=== PATIENT | female | born 1945 | race Caucasian/White ===

== ENCOUNTER → 2022-04-13 13:07 | Outpatient (CLI) | payer OTHER, SELFPAY ==
[2022-04-13 13:47] LABS: Add Manual Diff / Slide Review NO; Basophils Absolute Auto 100 /uL (0-100); Basophils Percent Auto 1.2 % (0-2); Eosinophils Absolute Auto 400 /uL (0-450); Eosinophils Percent Auto 4.6 % (2-4); Hematocrit 34.1 % (36-46); Lymphocytes Absolute Auto 2200 /uL (1100-4500); Lymphocytes Percent Auto 25.4 % (25-40); Mean Corpuscular HGB Conc 32.1 % (30-36); Mean Corpuscular Hemoglobin 24.4 PG (26-34); Monocytes Absolute Auto 600 /uL (0-900); Monocytes Percent Auto 7.6 % (3-14); Neutrophils Absolute Auto 5200 /uL (1500-7000); Neutrophils Percent Auto 61.2 % (50-75); Platelet Count 247 X10^3/uL (150-400); Red Blood Cell Count 4.49 X10^6/uL (4.0-5.2); Red Cell Distribution Width 17.8 % (11.6-14.8); White Blood Cell Count 8.6 X10^3/uL (4.5-11.0)
[2022-04-13 14:00] LABS: Hemoglobin A1C% w Est Avg Glu 5.6 % (4.0-6.0); PTT Partial Thromboplastin Tim 27 SECONDS (26-36)
[2022-04-13 14:14] LABS: BUN Creatinine Ratio 17.2 (6-22); Blood Urea Nitrogen 16 mg/dL (7-17); Calcium 9.1 mg/dL (8.4-10.2); Carbon Dioxide 27 mmol/L (22-32); Chloride 100 mmol/L (98-107); Estimated Glomerular Filt Rate > 60 mL/min (>60); Glucose 96 mg/dL (80-110); HEMOLYSIS < 15 (0-50); Sodium 138 mmol/L (137-145)
[2022-04-13 14:52] LABS: Appearance Urine UA CLEAR; Bilirubin Urine UA NEGATIVE (NEGATIVE); Color Urine UA YELLOW; Glucose Urine UA NEGATIVE (Negative); Ketones Urine UA NEGATIVE (NEGATIVE); Leukocyte Esterase Urine UA NEGATIVE (NEGATIVE); Nitrite Urine UA NEGATIVE (Negative); Occult Blood Urine UA NEGATIVE (Negative); Protein Urine UA NEGATIVE (Negative); Specific Gravity Urine UA <=1.005 (1.000-1.035); Urobilinogen Urine UA 0.2 E.U./dL (0.2)
[2022-04-13 15:09] LABS: Bacteria Urine None Seen; Culture Indicated Urine Cult Not Indicated; RBC Urine None Seen (0-5/HPF); WBC Urine None Seen (0-5/HPF)
== END ==
PROVIDERS: Family Provider Family Medicine; PCP Family Medicine; Referring Provider Orthopaedic Surgery; Visit Provider Orthopaedic Surgery
DX: Z01.818 Encounter for other preprocedural examination (principal); Z51.81 Encounter for therapeutic drug level monitoring; R73.9 Hyperglycemia, unspecified; Z01.812 Encounter for preprocedural laboratory examination; N39.0 Urinary tract infection, site not specified
CPT/HCPCS: 80048; 81001; 83036; 85025; 85610; 85730; 93005

== ENCOUNTER → 2022-05-13 11:24 | Outpatient (CLI) | payer OTHER, SELFPAY ==
[2022-05-13 13:58] LABS: COVID19 -Nasal RAPID Negative (Negative)
== END ==
PROVIDERS: Family Provider Family Medicine; PCP Family Medicine; Referring Provider Orthopaedic Surgery; Visit Provider Orthopaedic Surgery
DX: Z20.822 Contact with and (suspected) exposure to COVID-19 (principal)
CPT/HCPCS: 87635; C9803

== ENCOUNTER 2022-05-16 06:19 | Day surgery (SDC) | payer OTHER, SELFPAY ==
[2022-05-03 09:18] VITALS: BMI 28.3
[2022-05-16] VITALS (15 sets, daily range): BP systolic 118–192; BP diastolic 74–102; PULSE 65–97; RESP 12–21; TEMP 35.9–36.7; O2SAT 94–100; BMI 28.3
--- NOTE | 2022-05-16 06:00 | DI.RAD.S_ITS ---
PROCEDURE: XR HIP W PEL IF DONE RT 2V INDICATIONS: INNER OP TECHNIQUE: 2 view(s) of the hip acquired. COMPARISON: None. FINDINGS: 4 intraoperative fluoroscopic images of the right hip demonstrate operative changes of right total hip arthroplasty. Alignment appears anatomic. No evidence for gross hardware complication. IMPRESSION: Intraoperative fluoroscopic support for right total hip arthroplasty. Please see separate procedure note for further details. Dictated by: Felix Womack M.D. on 05/16/2022 at 16:04 Approved by: Felix Womack M.D. on 05/16/2022 at 16:05
[2022-05-16] MEDS: ACETAMINOPHEN 325 MG TABLET 975 MG PO (06:47)
[2022-05-16] MEDS: MELOXICAM 7.5 MG TABLET 15 MG PO (06:48)
[2022-05-16] MEDS: VANCOMYCIN 1,000 MG/200 ML PIGGYBACK 200 MG IV (06:53)
[2022-05-16] MEDS: LACTATED RINGERS 1,000 ML 42 ML IV ×2 (07:06→10:01)
[2022-05-16 07:36] LABS: COVID19 -Nasal RAPID Negative (Negative)
--- NOTE | 2022-05-16 07:40 | PM.PREOP ---
Pre-operative Note COVID-19 COVID-19 status: Negative Interval Note History & Physical reviewed/Exam performed by Physician: Yes Changes to H&P: No
--- NOTE | 2022-05-16 07:41 | P.OP_ITS ---
Operative Date/Time/Diagnoses Date of procedure: 05/16/22 Time of procedure: 08:00 Pre-op diagnosis: Severe right hip osteoarthritis Post-op diagnosis: same Procedure & Clinicians Procedure: Right total hip arthroplasty anterior approach Same procedure as scheduled: Yes Indications: The patient has had progressively worsening right hip pain with radiographic changes consistent with arthritis. Non-operative management has failed and the patient has requested total hip replacement. The risks, benefits and alternatives to surgery were discussed with the patient prior to proceeding. Risks discussed included, but were not limited to, failure to relieve pain, leg length discrepancy, dislocation, stiffness, infection, nerve damage, deep venous thrombosis, pulmonary embolism, stroke, coma, heart attack, permanent paralysis and , as well as the potential need for eventual revision of the prosthetic. Surgeon: Peggy Santos Head Of Design: Hector Wheeler Anesthesia Type: General and Spinal Operative Notes Findings: Severe right hip osteoarthritis, adequate stability, adequate bone Closure Type: primary Specimen(s): none sent Prosthetic devices, grafts, tissues, transplants, or devices: Santos and nephew anthology standard offset femur size 4, size 48 R3 cup, neutral poly liner, 32 x -3 Oxinium head,two 6.5 mm screws Estimated Blood Loss (mL): 250 Blood products transfused: none Procedure in detail: The patient was brought to the operating room. Patient was carefully positioned in the supine position. Time-out was performed and antibiotics were given. Anesthesia was induced. She was positioned in the on the table in order to allow hyperextension of the hip. The right lower extremity was prepped and draped in a standard sterile fashion. An anterior right hip incision was made 1 fingerb readth lateral to the anterior superior iliac spine and extended distally towards the greater trochanter. Dissection was carried out through skin and subcutaneous tissues. Superficial hemostasis was achieved. The fascia over the tensor fascia caroline was defined and incised with a knife. Two Allis clamps were used to grasp the fascia. Tensor fascia caroline was retracted laterally. A gelpi retractor was placed. Dissection was carried out down along the neck. The circumflex vessels were carefully identified and cauterized with the Aqua Mantis. There was good visualization of the femoral neck. A Cobra was placed superior to the neck and the gluteus fibers were carefully stripped from that superior aspect of the capsule. A 2nd retractor was placed along the inferior aspect of the neck. The rectus insertion along the capsule was partially released. A 3rd retractor that was then gently placed over the rim of the acetabulum under the rectus. Capsule was carefully incised and released from the intertrochanteric line circumferentially superior to the mid sagittal line and inferiorly to the mid sagittal line until the lesser trochanter was palpable. A tag stitch was placed both in the superior and inferior limb of the capsular insertion. Along the acetabulum capsule was also released up to the mid sagittal 12:00 position. A portion of the labrum was resected. A saw was used to perform an osteotomy at the level of the intertrochanteric line and the junction of the superior femoral neck leaving approximately 1 finger breath of residual inferior neck above the lesser trochanter. A 2nd cut was made along the femoral neck at the base of the head and a napkin ring of neck was removed. Corkscrew was placed in the femoral head and the head was removed without difficulty. Retractors were then repositioned around the acetabulum. Residual labrum was resected and additional osteophytes were removed. A reamer that was 4 mm below the templated size was placed by hand in the acetabulum and it was reamed to centralize the acetabulum. It was then reamed up to 2 under the templated size and fluoroscopy was brought in to confirm the position of the reaming and depth of reaming. I reamed 1 under the anticipated size. A trial cup was placed and noted that it was appropriately sized and fluoroscopy confirmed position and depth. The component was open and inserted without difficulty fluoroscopic imaging was used to confirm that the cup had been adequately seated and was well positioned. It was further stabilized with 2 screws. Neutral poly liner was placed. The cup was tested and noted to be stable. Attention was then directed to the femur. The femur was gently hyperextended additional capsular release was performed as needed in order to allow adequate visualization of the proximal femur with elevation of the femur. Patient was placed in a hyperextended slightly adducted position with maximum external rotation. Box osteotome was used to check for any residual neck as well as sclerotic bone along the trochanter. [place] pepper was placed in the femur. Additional broaching was performed. Canal finder was used to determine the alignment of the canal and position. Size 1 broach was placed. The canal was then appropriately broached up to the templated size as long as there was adequate stability of the broach and serial advancement of the broach without excessive impingement. Specific attention was directed at avoiding varus attempting to direct the distal aspect of the broach more anteriorly and avoiding excessive anteversion. Trial reduction showed acceptable range of motion, good stability, no posterior impingement, buddhism of leg length and appropriate lateral shuck. I also hyperflexed the hip and checked that there was no impingement anteriorly and there was good stability with flexion, adduction and internal rotation. Marcaine and Exparel were injected. The stem was placed without difficulty. Repeat trial reduction and x-ray showed acceptable overall position, length, and no evidence of the femoral fracture. Final head was placed. Wound was meticulously irrigated with normal saline. The hip was reduced and additional Exparel and Marcaine were injected. The capsule was closed with interrupted nonabsorbable sutures. The fascia of the tensor was closed with interrupted and running Vicryl. No drain was placed. Any tensor fascia caroline muscle that appeared to be contused or injured which was a minimal amount was carefully resected. Capsule around the tensor was injected with Exparel and Marcaine. The skin was closed with barbed stitches for the subcutaneous tissue and skin. We also used surgical glue. The wound was dressed sterilely. Brief Betadine soak was also used and was meticulously irrigated with normal saline. Patient was transferred to recovery room in satisfactory condition. Complications: none Post-operative Condition: stable Disposition: Acute Care Plan for aftercare: The patient will be maintained on a standard total hip replacement protocol with weight bearing as tolerated and anterior hip precautions. The patient will receive Aspirin and sequential compression devices for DVT prophylaxis. The patient will be discharged home when safe for the home environment.
[2022-05-16] MEDS: TRANEXAMIC ACID 1,000 MG VIAL 2000 MG INJ ×2 (08:04→09:50)
[2022-05-16] MEDS: CEFAZOLIN 2 GM/100 ML PREMIX 100 ML IV ×2 (08:17→15:53)
--- NOTE | 2022-05-16 08:27 | SUR.OPER ---
Patient supine on padded [place] table, left arm on padded arm board at <90, right arm padded and secured with tape across patient's chest, both legs secured in padded traction boots and positioned per surgeon, padded post at patient's groin, pressure points checked and padded. Pt positioned per direction and supervision of Dr Santos
[2022-05-16] MEDS: BUPIVACAINE LIPOSOME 266 MG/20 ML VIAL INJ (08:31)
[2022-05-16] MEDS: BUPIVACAINE 0.25% (PF) 60 ML, EPINEPHrine 0.3 MG INJ (08:32)
--- NOTE | 2022-05-16 10:30 | DI.RAD.S_ITS ---
PROCEDURE: XR HIP W PEL IF DONE RT 2V INDICATIONS: RIGHT TOTAL HIP TECHNIQUE: 2 view(s) of the hip acquired. COMPARISON: [facility], JITENDRA, XR HIP W PEL IF DONE RT 2V, 05/16/2022, 10:13. FINDINGS: Bones: Patient is status post right hip arthroplasty, with hardware components in expected positions. The hip joint appears congruent. The visualized bony structures appear intact. Soft tissues: Overlying postoperative changes are noted. No suspicious soft tissue densities. IMPRESSION: Status post right total hip arthroplasty. No acute hardware complication identified. Dictated by: Felix Womack M.D. on 05/16/2022 at 11:55 Approved by: Felix Womack M.D. on 05/16/2022 at 11:56
[2022-05-16] MEDS: hydrOXYzine pamoate 25 MG CAPSULE PO (10:39)
--- NOTE | 2022-05-16 10:55 | SUR.PHASEI ---
Assumed care. VS stable. Spouse at bedside. Call light within reach.
[2022-05-16] MEDS: TRAMADOL 50 MG TABLET PO ×2 (11:05→15:35)
[2022-05-16] MEDS: IBUPROFEN 400 MG TABLET PO (12:00)
[2022-05-16] MEDS: ACETAMINOPHEN 325 MG TABLET 650 MG PO (12:01)
[2022-05-16] MEDS: LACTATED RINGERS 1,000 ML 125 ML IV (13:06)
--- NOTE | 2022-05-16 14:44 | SUR.PHASEI ---
Report was called to KG Ying, then patient was transferred to the floor with belongings bag. Report was given to Rocio. IV patent, bag hanging. Right hip dressing CDI. Call light within reach.
--- NOTE | 2022-05-16 14:45 | PT.IIE ---
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) History of total right knee replacement Hx of arthroscopy of right knee Hx of bilateral cataract extraction Hx of colonoscopy Hx of tonsillectomy Medical History (Last Updated 05/03/22 @ 09:34 by Lazara Sepulveda RN) Anesthesia complication HLD (hyperlipidemia) Physical Therapy Inpatient Evaluation/Re-Eval M1 PT/OT-IP Prior Functional Status Start: 05/16/22 16:05 Freq: NEEDED Status: Active Protocol: Document 05/16/22 14:45 AB (Rec: 05/16/22 16:13 AB [id number]) Medical Review Prior Functional Status Medical History Reviewed Yes Communication able to make needs known Mobility and Gait pt stated that she is independent with all mobilities and ambulation without AD Social History Household Members spouse Living Arrangements House Number of Floors (Floors) One Floor Number of Stairs To Enter/Railing? no steps to enter Home Environment Standard Height Toilet,Walk in Shower Home Equipment Front Wheel Walker,Four Wheel Walker,Raised Toilet Seat Without Armrests,Shower Seat without Backrest M2 PT-IP Current Condition Start: 05/16/22 16:05 Freq: NEEDED Status: Active Protocol: Document 05/16/22 14:45 AB (Rec: 05/16/22 16:13 AB [id number]) Physical Therapy Current Condition Current Condition Evaluation Date 05/16/22 Treatment Diagnosis s/p R AZRA anterior approach; difficulty in walking Onset Date 05/16/22 M3 PT-IP Subjective Start: 05/16/22 16:05 Freq: NEEDED Status: Active Protocol: Document 05/16/22 14:45 AB (Rec: 05/16/22 16:13 AB [id number]) Subjective Physical Therapy Visit Type Type Initial Evaluation Visit Start Time 14:45 Visit Stop Time 15:34 Total Visit Minutes 49 Number of AUTO RESEARCH ENGINEER Visits 0 Physical Therapy Visit Comments Patient Comments agreeable to do PT Therapy Pain Assessment Pain When Pain Assessed At Rest Pain Present Pain Present Pain Reported Location right hip Intensity 3 Scale Used increased to 5/10 after mobility Pain Management Techniques Apply Cold,Distraction, Modification of Treatment,Re- positioning,Timing of Activity with Medications M4 PT-IP Mobility and Gait Start: 05/16/22 16:05 Freq: NEEDED Status: Active Protocol: Document 05/16/22 14:45 AB (Rec: 05/16/22 16:13 AB [id number]) PT-Bed Mobility Assessment Supine to Sit Supine to Sit Standby Assistance PT-Transfer Assessment Sit to and From Stand Sit to and from Stand Standby Assistance,Contact Guard Assistance,1 Person Assistance,Use of Upper Extremities Equipment Transfer Assistive Device Gait Belt,Front Wheeled Walker Orthotic/Prosthetic Devices or Brace: No Transfers Transfer Destination Chair Transfer Technique ambulated Transfer Ability Level of Assist Standby Assistance,Contact Guard Assistance,1 Person Assistance,Use of Upper Extremities Comments Mobility Comments educated pt regarding anterior hip precautions and pt able to recall. completed supine to sit SBA. able to sit on EOB SBA. completed sit to stand SBA to CGA and pt ambulated in room using FWW initially requiring CGA and cues but midway, able to ambulate SBA. pt sat on chair. positioned on chair. call light and table placed within reach. Gait Assessment Gait Gait Assistance Required: Standby Assistance,Contact Guard Assist Distance (Feet) 70 Able to Maintain Weight Bearing Status Yes During Gait Assistive Devices Assistive Device Gait Belt,Front Wheeled Walker Orthotic/Prosthetic Devices or Brace: No Gait Deviations General Gait Pattern Decreased Feet Clearance Factors Limiting Gait Function Factors Limiting Gait Function Decreased Activity Tolerance, Difficulty Following Directions,Limited Range of Motion,Pain,Poor Balance,Poor Safety Awareness PT-Balance Assessment Sitting Balance and Reactions Static Sitting Balance Ability Normal Dynamic Sitting Balance Ability Good Standing Balance and Reactions Static Standing Balance Ability Fair Dynamic Standing Balance Ability Fair Device Used FWW M5 PT-IP Objective Assessments Start: 05/16/22 16:05 Freq: NEEDED Status: Active Protocol: Document 05/16/22 14:45 AB (Rec: 05/16/22 16:13 AB [id number]) Orientation Orientation/Cognition Level of Alertness Alert Orientation Name,Situation Language Function Ability No Deficits Noted Safety Awareness Understands Safety Issues Memory Description No Deficits Noted Gross Range of Motion Lower Extremity ROM Assessment Within Functional Limits Strength Lower Extremity Strength Assessment Right Impaired Hip 3+/5 Knee 4-/5 Coordination Assessment Gross Coordination Gross Coordination WNL Sensation Assessment Sensation Gross Sensation WNL Muscle Tone Muscle Tone WNL Yes M6 PT-IP Treatment Start: 05/16/22 16:05 Freq: NEEDED Status: Active Protocol: Document 05/16/22 14:45 AB (Rec: 05/16/22 16:13 AB [id number]) Physical Therapy Treatment Education Education Provided Precautions,Weight Bearing Status,Post-Op Packet,Safety M7 PT-IP Assessment and Plan Start: 05/16/22 16:05 Freq: NEEDED Status: Active Protocol: Document 05/16/22 14:45 AB (Rec: 05/16/22 16:13 AB [id number]) PT Summary Assessment and Plan Potential Rehabilitation Potential Good Status of Condition at Evaluation Evolving Summary Impairments Pain,ROM,Strength,Balance, Coordination,Sensation,Tone, Cognition,Bed Mobility, Transfers,Gait,Activity Tolerance Assessment Summary pt requiring SBA to CGA with mobility using FWW and plans to go home with spouse to assist her. pt s/p R AZRA anterior approach and just had surgery this morning and will likely progress during hospital stay. Pt may go home when medically stable. Goals Bed Mobility Goal Independent Transfer Goal Independent,Front Wheeled Walker Gait Goal Independent,Front Wheel Walker Gait Distance 150 Days to Meet Goals 5 Frequency of Treatment Frequency Of Treatment Twice a Day Treatment Plan Physical Therapy Treatment Plan Bed Mobility Training,Transfer Training,Gait Training, Therapeutic Exercise,Balance Retraining,Post Op Education, Discharge Planning,Hot or Cold Pack,Neuromuscular Re-ed, Coordination Retraining,Manual Therapy Precautions Anterior Hip Precautions No Hip Extension,No Hip External Rotation Weight Bearing Status Weight Bearing Status Weight Bear as Tolerated Allowed Weight Bearing Amount (enter % RLE WBAT or #) (%) Recommendations To Nursing Amount of Assist Needed 1 Person Assist Discharge Recommendations PT Discharge Recommendations Home with Assistance, Outpatient PT Transportation Needs at Discharge Private Vehicle,Wheelchair/ Cabulance
--- NOTE | 2022-05-16 15:45 | PC.NURSE ---
Addendum entered by Becky Wilson R.N. 05/16/22 18:03: Pt received D/C orders HL D/C'd intact. Home instructions given w/understanding Pt escorted by staff via W/C to waiting vehicle. Discharged in stable condition. Addendum entered by Becky Wilson R.N. 05/16/22 15:49: IVF of LR at 125cc/hr infusing via pump w/o incidence. Original Note: Pt arrived from PACU A/O Aquacell Dsg to right anterior hip CDI Assisted to BSC w/o incidence. Now sitting in chair. Tramadol at 1530 for some discomfort. Call light w/in reach, pt calls appropriately for needs Continue w/plan of care.
--- NOTE | 2022-05-16 16:52 | P.PN_ITS ---
Subjective Subjective Interval history: She is doing well. She has minimal pain. She is been up with therapy. Exam Vital Signs (past 8 hours): - 05/16/22 10:07 05/16/22 10:13 05/16/22 10:22 Temperature 97.8 F Pulse Rate 76 72 72 Respiratory Rate 21 17 13 Blood Pressure 132/78 135/79 129/76 Pulse Oximetry 97 97 94 Oxygen Delivery Method Room Air Room Air Room Air 05/16/22 10:32 05/16/22 10:18 05/16/22 10:27 Temperature 97.5 F L 97.2 F L Pulse Rate 70 79 71 Respiratory Rate 15 14 13 Blood Pressure 136/78 118/81 140/74 Pulse Oximetry 99 96 98 Oxygen Delivery Method Room Air Room Air Room Air 05/16/22 10:45 05/16/22 11:50 05/16/22 10:55 Temperature 97.0 F L 97.3 F L Pulse Rate 65 66 Respiratory Rate 12 16 18 Blood Pressure 133/75 148/87 H Pulse Oximetry 97 100 Oxygen Delivery Method Room Air Room Air Oxygen Delivery Method Room Air Narrative Exam Narrative: Dressings dry she is neurologically intact distally her calves are soft bilaterally Objective Labs Labs: Laboratory Results - last 24 hr 05/16/22 06:49 SARS-CoV-2 (PCR) Negative [facility] Medical History (Updated 05/03/22 @ 09:34 by Lazara Sepulveda RN) Anesthesia complication HLD (hyperlipidemia) Surgical History (Updated 05/03/22 @ 10:15 by Lazara Sepulveda RN) H/O wisdom tooth extraction History of section History of surgery History of tonsillectomy and adenoidectomy (1959) 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) History of total right knee replacement Hx of arthroscopy of right knee Hx of bilateral cataract extraction Hx of colonoscopy Hx of tonsillectomy Social History household members: spouse Smoking Status: Never smoker alcohol intake: current Assessment & Plan Post-op Postoperative Procedures: Procedures Operation Date: 05/16/22 07:45 Actual Procedure Side Surgeon p Total Hip Arthroplasty/Anterior Approach Right Peggy Santos MD Postoperative day: 0 Postoperative status: doing well Postoperative plan: discharge Postoperative plan narrative: Patient is doing well we discussed the plan for discharge. She will be discharged to home with her . She has been out of bed with therapy. We reviewed her dressing therapy and medications in detail.
== END 2022-05-16 17:50 | disposition home or self-care (01) ==
LOC: OR 06:22 → AC 06:22
PROVIDERS: Family Provider Family Medicine; PCP Family Medicine; Referring Provider Orthopaedic Surgery; Visit Provider Orthopaedic Surgery
PROC: (CPT 27130; principal; 2022-05-16 07:45)
DX: M16.11 Unilateral primary osteoarthritis, right hip (principal); Z20.822 Contact with and (suspected) exposure to COVID-19
CPT/HCPCS: 27130; 73502; 76000; 87635; 97162; 97530; C1776; C9803; C9290; J0171; J0690; J1100; J2250; J2405; J2704; J3010